=== PATIENT | female | born 1995 | race Hispanic/Latino ===

== ENCOUNTER 2016-10-15 15:38 | Emergency (ER) | payer OTHER ==
[~2016-10-15] VITALS: Ht 160 cm; Wt 72.6 kg
[~2016-10-15 15:38] MED LIST: MACROBID 100 M100 MG PO; PEPCID20 M1 PO; ZOFRAN ODT4 M1 SL
--- NOTE | 2016-10-15 16:14 | ED INFLUENZA/URI COMPLAINT ---
History of Present Illness General Chief Complaint: General Adult Stated Complaint: CONGESTION,EAR PAIN,SORE THROAT, LT HAND PAIN Source: patient Exam Limitations: no limitations Vital Signs & Intake/Output Vital Signs & Intake/Output Vital Signs Date Time Temp Pulse Resp B/P Pulse O2 O2 Flow FiO2 Ox Delivery Rate 10/15 1551 97.9 96 16 115/71 98 Room Air Allergies Coded Allergies: No Known Allergies (11/27/15) Reconcile Medications Famotidine (Pepcid) 20 MG TABLET 1 TAB PO DAILY gastritis Nitrofurantoin Monohyd/M-Cryst (Macrobid 100 MG Capsule) 100 MG CAPSULE 1 CAP PO BID uti with food Ondansetron (Zofran Odt) 4 MG TAB.RAPDIS 1 TAB SL TID PRN nausea Triage Note: PT STATES SHE HAS CONGESTION IN HER HEAD AND BOTH HER EARS HURT FOR 1 WEEK. PT ALSO STATES HER LEFT HAND HAS BEEN HURTING FOR 3 DAYS. PT ARRIVES WITH BRACE TO LEFT WRIST. Triage Nurses Notes Reviewed? yes Onset: Gradual Duration: week(s): (1) Timing: recent history Severity: moderate Modifying Factors: Worsens With: movement. Associated Symptoms: cough, earache, sore throat : No Patient currently breastfeeds: Yes HPI: This is a 20-year-old female presents to the ER for chief complaint of bilateral ear congestion, cough and sore throat for the past 3 days. No fever or chills. She also complains of pain to her left wrist which has been severe. She is a new mom of 2 months and states that her left wrist is been hurting on and off and she's been using a splint at home that her mother gave her. Positive sick contacts at home but no influenza home. Past History Travel History Traveled to [place] past 21 day No Medical History Any Pertinent Medical History? see below for history Neurological: NONE EENT: NONE Cardiovascular: NONE Respiratory: NONE Gastrointestinal: NONE Hepatic: NONE Renal: NONE Musculoskeletal: NONE Psychiatric: NONE Endocrine: NONE Blood Disorders: NONE Cancer(s): NONE IRON CUTTER/Reproductive: NONE Surgical History Surgical History: N Psychosocial History What is your primary language Vincentian Tobacco Use: Never used ETOH Use: denies use Illicit Drug Use: denies illicit drug use Family History Hx Contributory? No Review of Systems Review of Systems Constitutional: Reports: chills. Denies: fever. EENTM: Reports: ear pain, throat pain. Respiratory: Reports: cough. Denies: short of breath. Cardiovascular: Denies: chest pain, palpitations. GI: Denies: abdominal pain. Genitourinary: Reports: no symptoms. Musculoskeletal: Reports: no symptoms. Skin: Reports: no symptoms. Neurological/Psychological: Reports: no symptoms. Hematologic/Endocrine: Denies: bruising, bleeding, polyuria, polydipsia. Immunologic/Allergic: Denies: splenectomy. All Other Systems: Reviewed and Negative Physical Exam Physical Exam General Appearance: well developed/nourished, alert, awake, anxious Head: atraumatic, normal appearance Eyes: Bilateral: normal appearance, PERRL, EOMI. Ears, Nose, Throat: normal ENT inspection, moist mucous membrane, hearing grossly normal, Tympanic normal, pharyngeal erythema Neck: normal inspection, supple, full range of motion Respiratory: normal breath sounds, chest non-tender, no respiratory distress Cardiovascular: regular rate/rhythm Peripheral Pulses: 2+ radial (R), 2+ radial (L) Gastrointestinal: normal bowel sounds, soft, non-tender Back: normal inspection, normal range of motion Extremities: normal inspection, normal capillary refill, normal range of motion, no edema, PAIN WITH FLEXION/EXTENTION OF LEFT THUMB Neurologic/Psych: no motor/sensory deficits, awake, alert, oriented x 3, normal gait, normal mood/affect Skin: intact, normal color, warm/dry Core Measures Severe Sepsis Present: No Septic Shock Present: No Progress Differential Diagnosis: OTITIS MEDIA, URI, INFLUENZA, STREP PHARYNGITIS, DE QUERVAIN'S TENOSYNOVITIS Plan of Care: Orders Procedure Date/time Status RAPID VIRAL INFLUENZA A 10/15 162 Complete THROAT CULTURE W/QUICK STREP 10/15 1623 Active Initial ED EKG: none Departure Departure Time of Disposition: 1734 Disposition: HOME OR SELF CARE Condition: Stable Clinical Impression Primary Impression: De Quervain's tenosynovitis, left Referrals: PATIENT HAS NO PRIMARY CARE DR (PCP/Family) Additional Instructions: TAKE MOTRIN OR TYLENOL NEEDED FOR PAIN/SORE THROAT. DRINK PLENTY OF FLUIDS. FOLL0W UP WITH YOUR DOCTOR IN THE OFFICE. RETURN NEEDED. Departure Forms: Customer Survey General Discharge Information Procedures Splinting Location: LEFT HAND/WRIST SPLINT Pre-Made Type: velcro Splint Applied By: splint applied by other Pre-Proc Neuro Vasc Exam: normal Post-Proc Neuro Vasc Exam: normal
[2016-10-15 18:03] VITALS: BP 120/72
== END 2016-10-15 18:04 ==
LOC: ERH 15:38
DX: M65.4 Radial styloid tenosynovitis [de Quervain] (principal)
CPT/HCPCS: 87147; 87804; 87804-59; 96372; J1885